=== PATIENT | male | born 1975 | race African-American/Black ===

== ENCOUNTER → 2023-06-09 16:21 | Outpatient (CLI) | payer OTHER, SELFPAY ==
--- NOTE | ~2023-06-09 | XR_ITS ---
EXAMINATION: XR chest 2V DATE: 06/09/2023 16:37 INDICATION: Chronic cough. Smoker. TECHNIQUE: Frontal and lateral views of the chest were obtained. COMPARISON: None. FINDINGS: There is no pneumonia, pleural effusion, or pneumothorax. The heart size is normal. IMPRESSION: 1. No acute cardiopulmonary disease. Reviewed, dictated and finalized at location A. NT ARCHITECT
== END ==
PROVIDERS: PCP Physician Assistant; Visit Provider Physician Assistant
DX: R05.9 Cough, unspecified (principal); Z87.891 Personal history of nicotine dependence
CPT/HCPCS: 71046